=== PATIENT | male | born 1940 | race Caucasian/White ===

== ENCOUNTER 2021-03-27 20:51 | Emergency (ER) | payer MEDICARE, BC ==
[2021-03-27] MEDS ORDERED: Bacitracin Oint 1 GM U/D Packet TOP ONE (21:31)
--- NOTE | 2021-03-27 21:48 | EDM.PDOC ---
ED HPI GENERAL MEDICAL PROBLEM - General Chief Complaint: General Stated Complaint: FISH HOOK LEFT HAND MIDDLE FINGER Time Seen by Provider: 03/27/21 21:20 Source of Information: Reports: Patient History Limitations: Reports: No Limitations - History of Present Illness INITIAL COMMENTS - FREE TEXT/NARRATIVE: 80-year-old male with a fishhook embedded into the pulp of the middle finger left hand. No other injury. Onset: Sudden Duration: Hour(s): (2 hours ago) Location: Reports: Upper Extremity, Left - Related Data Allergies Allergy/AdvReac Type Severity Reaction Status Date / Time No Known Allergies Allergy Verified 03/27/21 21:29 Home Meds: Home Meds OXcarbazepine [Oxcarbazepine] 2 tab PO ASDIRECTED 03/27/21 [History] levETIRAcetam [Levetiracetam] 100 mg PO ASDIRECTED 03/27/21 [History] Past Medical History HEENT History: Reports: Impaired Vision Neurological History: Reports: Seizure Social & Family History - Caffeine Use Caffeine Use: Reports: None ED ROS GENERAL - Review of Systems Review Of Systems: See Below Constitutional: Denies: Fever, Chills Respiratory: Reports: No Symptoms Cardiovascular: Reports: No Symptoms GI/Abdominal: Reports: No Symptoms. Denies: Nausea, Vomiting Psychiatric: Reports: No Symptoms ED EXAM, GENERAL - Physical Exam Exam: See Below Exam Limited By: No Limitations General Appearance: Alert, No Apparent Distress Respiratory/Chest: No Respiratory Distress Cardiovascular: Normal Peripheral Pulses Extremities: Other (Exam is otherwise limited to the left hand. The patient has 1 cornelia of a treble hook embedded into the palmar surface of the pulp middle finger) Neurological: Alert, Oriented Course - Vital Signs Last Recorded V/S: Last Vital Signs Temp 98.1 F 03/27/21 21:30 Pulse 71 03/27/21 21:30 Resp 14 03/27/21 21:30 BP 128/92 H 03/27/21 21:30 Pulse Ox 96 03/27/21 21:30 - Orders/Labs/Meds Meds: Medications Discontinued Medications Generic Name Dose Route Start Last Admin Trade Name Freq PRN Reason Stop Dose Admin Bacitracin 1 dose 03/27/21 21:31 03/27/21 21:52 Bacitracin Oint 1 Gm U/D Packet TOP 03/27/21 21:32 1 dose ONETIME ONE Administration Lidocaine HCl 5 ml 03/27/21 21:31 03/27/21 21:53 Lidocaine 1% 5 Ml Sdv INJECT 03/27/21 21:32 5 ml ONETIME ONE Administration - Re-Assessments/Exams Free Text/Narrative Re-Assessment/Exam: 03/27/21 21:47 The area was sterilized with alcohol, 1% lidocaine was infiltrated, and the hook removed with countertraction with a needle [place]. He was resterilized, a small amount of bacitracin and a Band-Aid was applied. He can recheck if concerns of infection or not healing satisfactorily. Departure - Departure Time of Disposition: 21:54 Disposition: Home, Self-Care 01 Clinical Impression: [employer] injury to finger Qualifiers: Encounter type: initial encounter Laterality: left Qualified Code(s): S69.92XA - Unspecified injury of left wrist, hand and finger(s), initial encounter - Discharge Information Instructions: Puncture Wound, [id number] Referrals: NORBERT STRONG [Other] Forms: ED Department Discharge Care Plan Goals: Keep wound covered and clean while healing, recheck if concerns of infection or not healing satisfactorily. Keep fishing. Sepsis Event Note (ED) - Evaluation Sepsis Screening Result: No Definite Risk - Focused Exam Vital Signs: Vital Signs Temp Pulse Resp BP Pulse Ox 03/27/21 21:30 98.1 F 71 14 128/92 H 96 03/27/21 21:26 98.1 F 71 14 128/92 H 96
== END 2021-03-27 21:54 | disposition home or self-care (01) ==
LOC: JP.ED 20:51
DX: S60.452A Superficial foreign body of right middle finger, initial encounter (principal); W45.8XXA Other foreign body or object entering through skin, initial encounter
CPT/HCPCS: 99282